=== PATIENT | female | born 1980 | race Asian ===

== ENCOUNTER 2020-09-06 11:50 | Day surgery (SDC) | payer OTHER, SELFPAY ==
[~2020-09-06] VITALS: Ht 160 cm; Wt 68.0 kg
[2020-09-06] MEDS ORDERED: MORPHINE 4 MG INJ. 4 MG/ML VIAL IVP PRN ×2 (13:15)
[2020-09-06] MEDS ORDERED: HYDROmorphone 2 MG/ML VIAL IVP PRN (13:15)
[2020-09-06] MEDS ORDERED: ONDANSETRON HCL 4 MG/2 ML VIAL IVP PRN ×2 (13:15→14:30)
[2020-09-06] MEDS ORDERED: ONDANSETRON HCL 4 MG/2 ML VIAL IVP ONE (13:20)
[2020-09-06] MEDS ORDERED: NS 1000 ML IV.SOLN IV ONE (13:20)
[2020-09-06] MEDS ORDERED: PROPOFOL 200MG/ 20ML VIAL (DIPRIVAN) IV ONE (13:20)
[2020-09-06] MEDS ORDERED: SEVOFLURANE 15 MIN GAS INH ONE (13:20)
[2020-09-06] MEDS ORDERED: LR 1,000 ML IV.SOLN IV ONE (13:20)
[2020-09-06] MEDS ORDERED: DEXAMETHASONE SOD PHOSPHATE 4 MG/ML VIAL IVP ONE (13:20)
[2020-09-06] MEDS ORDERED: ePHEDrine sulfate 50 MG/ML VIAL IVP ONE (13:20)
[2020-09-06] MEDS ORDERED: fentaNYL CITRATE/PF 100 MCG/2 ML AMP IVP ONE (13:20)
[2020-09-06] MEDS ORDERED: CEFAZOLIN 2 GM IVPB PREMIX 50 ML IV ONE (13:20)
[2020-09-06] MEDS ORDERED: MIDAZOLAM HCL 5 MG/5 ML VIAL IVP ONE (13:20)
[2020-09-06] MEDS ORDERED: NS IRRIG SOLN 1000 ML IR ONE (13:20)
[2020-09-06] MEDS ORDERED: OXYCODONE/ACETAMINOPHEN 5-325 TABLET PO PRN ×2 (14:30)
[2020-09-06] MEDS ORDERED: HYDROcodone/ACETAMIN 5-325 MG TAB (NORCO/ VICODIN) PO PRN (14:30)
[2020-09-06 15:20] VITALS: BP_SYST 119
== END 2020-09-06 16:55 | disposition home or self-care (01) ==
LOC: SDS 11:50 → SMU 11:52 → SDS 16:55
PROVIDERS: ATTEND Specialist
DX: O03.4 Incomplete spontaneous abortion without complication (principal); J45.909 Unspecified asthma, uncomplicated; Z79.899 Other long term (current) drug therapy
CPT/HCPCS: 36415; 59812; 87426; 88305; J0690; J1100; J2250; J2405; J2704; J3010; J7030; J7120